=== PATIENT | female | born 1985 | race Hispanic/Latino ===

== ENCOUNTER 2019-05-10 17:06 | Emergency (ER) | payer OTHER ==
[2019-05-10 19:32] LABS: Urine Blood 3+ (NEG); Urine Glucose NEGATIVE (NEG); Urine Protein NEGATIVE (NEG); Urine pH 8.5 (5.0-7.0)
[2019-05-10 19:34] LABS: Absolute Lymphocytes (CBC) 3.2 K/uL (0.7-4.9); Basophils % 0.6 % (0-1.3); Hematocrit 40.3 % (36.0-45.0); Lymphocytes % 43.5 % (15.3-44.8); MPV 8.8 fL (7.6-11.3); RBC Red Blood Cell Count 4.42 M/uL (3.86-4.86)
[2019-05-10 19:37] LABS: Urine Bacteria <20 /HPF (<20); Urine Culture Reflex Order NOT NEEDED; Urine RBC LOADED /HPF (NONE SEEN)
[2019-05-10 19:51] LABS: Potassium 3.7 mmol/L (3.5-5.1)
--- NOTE | 2019-05-10 20:00 | ER ---
Nurse's Notes [facility] Name: Yoana Cook Age: 33 yrs Sex: Female : 1985 Arrival Date: 05/10/2019 Time: 17:08 Bed 24 Private MD: Diagnosis: Threatened Presentation: 05/10 17:09 Presenting complaint: Patient states: lower abdominal pain and lower back pain that aa5 began yesterday. Reports vaginal spotting today and reports positive test 1 week ago. Transition of care: patient was not received from another setting of care. Onset of symptoms was May 10, 2019. Risk Assessment: Do you want to hurt yourself or someone else? Patient reports no desire to harm self or others. Initial Sepsis Screen: Does the patient meet any 2 criteria? No. Patient's initial sepsis screen is negative. Does the patient have a suspected source of infection? No. Patient's initial sepsis screen is negative. Care prior to arrival: None. 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 - Social history:: Smoking status: Patient/guardian denies using tobacco. - Ebola Screening: : No symptoms or risks identified at this time. Screenin:09 Abuse screen: Denies threats or abuse. Denies injuries from another. Nutritional mg2 screening: No deficits noted. Tuberculosis screening: No symptoms or risk factors identified. Fall Risk IV access (20 points). Assessment: 19:09 General: Appears in no apparent distress. comfortable, Behavior is calm, cooperative. mg2 Pain: Complains of pain in back and abdomen. Neuro: Level of Consciousness is awake, alert, obeys commands, Oriented to person, place, time, situation. Cardiovascular: Capillary refill < 3 seconds Patient's skin is warm and dry. Respiratory: Airway is patent Respiratory effort is even, unlabored, Respiratory pattern is regular, symmetrical. GI: Reports lower abdominal pain. : Reports vaginal bleeding that is spotty, since today. EENT: No signs and/or symptoms were reported regarding the EENT system. Derm: Skin is intact, is healthy with good turgor, Skin is pink, warm \T\ dry. normal. Musculoskeletal: Circulation, motion, and sensation intact. Capillary refill < 3 seconds. Vital Signs: 17:11 BP 141 / 88; Pulse 96; Resp 16 S; Temp 98.0(TE); Pulse Ox 98% on R/A; Weight 70.31 kg aa5 (R); Height 5 ft. 4 in. (162.56 cm) (R); Pain 7/10; 20:31 BP 125 / 78; Pulse 80; Resp 18; Temp 98; Pulse Ox 100% on R/A; mg2 17:11 Body Mass Index 26.61 (70.31 kg, 162.56 cm) aa5 ED Course: 17:08 Patient arrived in ED. aa5 17:09 Arm band placed on. aa5 17:10 Triage completed. aa5 19:07 Octavio Villanueva NP is PHCP. pm1 19:07 Raghav Bhandari MD is Attending Physician. pm1 19:07 Adria Fernández RN is Primary Nurse. mg2 19:10 Patient has correct armband on for positive identification. mg2 19:30 Inserted saline lock: 20 gauge in right antecubital area, using aseptic technique. mg2 19:44 US Transvaginal Ob In Process Unspecified. EDMS 20:30 No provider procedures requiring assistance completed. mg2 20:31 IV discontinued, intact, bleeding controlled, No redness/swelling at site. Pressure mg2 dressing applied. Administered Medications: No medications were administered Outcome: 19:59 Discharge ordered by . pm1 20:31 Discharged to home ambulatory. mg2 20:31 Condition: stable 20:31 Discharge instructions given to patient, Instructed on discharge instructions, follow up and referral plans. Demonstrated understanding of instructions, follow-up care. 20:31 Patient left the ED. mg2 Signatures: Dispatcher [employer] EDMS Tonya Knight RN RN aa Octavio Villanueva NP LIFT MANAGER pm1 Adria Fernández RN RN mg2
--- NOTE | 2019-05-10 20:00 | EDPHYS ---
Physician Documentation [facility] Name: Yoana Cook Age: 33 yrs Sex: Female : 1985 Arrival Date: 05/10/2019 Time: 17:08 Bed 24 Private MD: ED Physician Raghav Bhandari HPI: 05/10 19:34 This 33 yrs old Female presents to ER via Ambulatory with complaints of pm1 Vaginal Bleeding, + Preg <12wks, Abdominal Pain. 19:34 The patient presents to the emergency department with vaginal bleeding, with no clots, pm1 spotting yesterday, moderate today. course: care: none, Ultrasound: the patient has not had an ultrasound, Risk/complications: no obvious risks or complications are appreciated. Associated signs and symptoms: Pertinent positives: abdominal pain, Pertinent negatives: dysuria, fever. The patient has not experienced similar symptoms in the past. The patient has not recently seen a physician. Patient estimates that she is about 5 weeks . HHA: 17:11 LMP 04/03/2019 aa5 Historical: - Allergies: 17:10 No Known Allergies; aa5 - PMHx: 17:10 Thyroid problem; aa5 - PSHx: 17:10 ; Appendectomy; aa5 - Immunization history:: Adult Immunizations up to date. - Social history:: Smoking status: Patient/guardian denies using tobacco. - Ebola Screening: : No symptoms or risks identified at this time. ROS: 19:34 Constitutional: Negative for fever, chills, and weight loss, Eyes: Negative for injury, pm1 pain, redness, and discharge, ENT: Negative for injury, pain, and discharge, Neck: Negative for injury, pain, and swelling, Cardiovascular: Negative for chest pain, palpitations, and edema, Respiratory: Negative for shortness of breath, cough, wheezing, and pleuritic chest pain. 19:34 MS/Extremity: Negative for injury and deformity, Skin: Negative for injury, rash, and discoloration, Neuro: Negative for headache, weakness, numbness, tingling, and seizure. 19:34 Abdomen/GI: Positive for abdominal cramps, of the suprapubic area, Negative for nausea, vomiting, and diarrhea. 19:34 Back: Positive for of the left low back and right low back, pain. 19:34 : Positive for vaginal bleeding, Negative for burning with urination, difficulty urinating, vaginal discharge. Exam: 19:34 Constitutional: This is a well developed, well nourished patient who is awake, alert, pm1 and in no acute distress. Head/Face: Normocephalic, atraumatic. Chest/axilla: Normal chest wall appearance and motion. Nontender with no deformity. No lesions are appreciated. Cardiovascular: Regular rate and rhythm with a normal S1 and S2. No gallops, murmurs, or rubs. Normal PMI, no JVD. No pulse deficits. Respiratory: Lungs have equal breath sounds bilaterally, clear to auscultation and percussion. No rales, rhonchi or wheezes noted. No increased work of breathing, no retractions or nasal flaring. Abdomen/GI: Soft, non-tender, with normal bowel sounds. No distension or tympany. No guarding or rebound. No evidence of tenderness throughout. Back: No spinal tenderness. No costovertebral tenderness. Full range of motion. Skin: Warm, dry with normal turgor. Normal color with no rashes, no lesions, and no evidence of cellulitis. MS/ Extremity: Pulses equal, no cyanosis. Neurovascular intact. Full, normal range of motion. 19:34 Neuro: Orientation: is normal, Motor: is normal, moves all fours. Vital Signs: 17:11 BP 141 / 88; Pulse 96; Resp 16 S; Temp 98.0(TE); Pulse Ox 98% on R/A; Weight 70.31 kg aa5 (R); Height 5 ft. 4 in. (162.56 cm) (R); Pain 7/10; 20:31 BP 125 / 78; Pulse 80; Resp 18; Temp 98; Pulse Ox 100% on R/A; mg2 17:11 Body Mass Index 26.61 (70.31 kg, 162.56 cm) aa5 MDM: 19:07 Patient medically screened. pm1 19:56 Data reviewed: vital signs. Data interpreted: Pulse oximetry: on room air is 98 %. pm1 Interpretation: normal. 19:58 Counseling: I had a detailed discussion with the patient and/or guardian regarding: the pm1 historical points, exam findings, and any diagnostic results supporting the discharge/admit diagnosis, lab results, radiology results, the need for outpatient follow up, to return to the emergency department if symptoms worsen or persist or if there are any questions or concerns that arise at home. 05/10 19:07 Order name: Abo/rh Typing; Complete Time: 22:58 pm1 05/10 19:07 Order name: Basic Metabolic Panel; Complete Time: 19:56 pm1 05/10 19:07 Order name: CBC with Diff; Complete Time: 19:39 pm1 05/10 19:17 Order name: Urine Microscopic Only; Complete Time: 19:39 pm05/10 19:25 Order name: Urine Dipstick--Ancillary (enter results); Complete Time: 19:33 eb 05/10 19:07 Order name: Urine Test (obtain specimen); Complete Time: 20:01 pm1 05/10 19:07 Order name: IV Saline Lock; Complete Time: 20:01 pm1 05/10 19:07 Order name: Labs collected and sent; Complete Time: 20:01 pm1 05/10 19:07 Order name: NPO; Complete Time: 19:08 pm1 05/10 19:07 Order name: Urine Dipstick-Ancillary (obtain specimen); Complete Time: 20:01 pm1 05/10 19:17 Order name: US Transvaginal Ob; Complete Time: 22:58 pm1 05/10 19:25 Order name: Urine --Ancillary (enter results); Complete Time: 19:33 eb 05/10 19:26 Order name: HCG, Quantitative; Complete Time: 19:56 EDMS Administered Medications: No medications were administered Disposition: 05/10/19 19:59 Discharged to Home. Impression: Threatened . - Condition is Stable. - Discharge Instructions: Threatened Miscarriage, Pelvic Rest. - Medication Reconciliation Form, Thank You Letter, Antibiotic Education, Prescription Opioid Use form. - Follow up: Emergency Department; When: As needed; Reason: Worsening of condition. Follow up: Private Physician; When: 2 - 3 days; Reason: Recheck today's complaints, Continuance of care, Re-evaluation by your physician. - Problem is new. - Symptoms have improved. Addendum: 05/13/2019 08:16 Co-signature as Attending Physician, Raghav Bhandari MD I agree with the assessment and c sanders plan of care. Signatures: Dispatcher [employer] EDMS Raghav Bhandari MD MD cha Calderon, Audri, RN RN aa5 Octavio Villanueva, COMPLIANCE PROJECT MANAGER COMPLIANCE PROJECT MANAGER pm1 Adria Fernández RN RN mg2 Corrections: (The following items were deleted from the chart) 05/10 19:52 19:24 QUANTITATIVE HCG+C.LAB.BRZ ordered. [facility] 20:31 19:59 05/10/2019 19:59 Discharged to Home. Impression: Threatened . Condition mg2 is Stable. Forms are Medication Reconciliation Form, Thank You Letter, Antibiotic Education, Prescription Opioid Use. Follow up: Emergency Department; When: As needed; Reason: Worsening of condition. Follow up: Private Physician; When: 2 - 3 days; Reason: Recheck today's complaints, Continuance of care, Re-evaluation by your physician. Problem is new. Symptoms have improved. pm1
--- NOTE | 2019-05-10 20:14 | RAD REPORT ---
EXAM DESCRIPTION: US - Transvaginal OB - 05/10/2019 7:43 pm CLINICAL HISTORY: with vaginal bleeding COMPARISON: None. FINDINGS: The uterus is retroverted measuring 7 x 4 x 5 centimeters. The endometrial stripe measure s 3 millimeters. A gestational sac is not seen. Neither ovary seen secondary to overlying bowel gas.. An adnexal mass is not noted. No significant free fluid IMPRESSION: Nonvisualization of a gestational sac within the endometrium. These findings could represent an early intrauterine in which the gestational sac is not se en. and even an ectopic can also result in this appearance. This all should be cor related clinically and with serial beta HCG levels. Followup endovaginal sonogram in 1 week recommend ed
[2019-05-10 20:41] VITALS: BP 125/78; TEMP 98; O2SAT 100
== END 2019-05-10 20:31 | disposition home or self-care (01) ==
LOC: ER 17:06
DX: O20.0 Threatened abortion (principal); Z3A.01 Less than 8 weeks gestation of pregnancy
CPT/HCPCS: 36415; 76817; 80048; 81003; 81015; 81025; 84702; 85025; 86900; 86901; 99283

== ENCOUNTER 2021-01-14 01:06 | Emergency (ER) | payer OTHER ==
[2021-01-14 02:18] LABS: Absolute Lymphocytes (CBC) 2.1 K/uL (0.7-4.9); Basophils % 0.4 % (0-1.3); Hematocrit 37.2 % (36.0-45.0); Lymphocytes % 33.7 % (15.3-44.8); MPV 8.5 fL (7.6-11.3); RBC Red Blood Cell Count 4.16 M/uL (3.86-4.86)
[2021-01-14 02:19] LABS: Protime INR 0.94
[2021-01-14 02:30] LABS: ALT/SGPT 105 U/L (12-78); AST/SGOT 74 U/L (15-37); Albumin 3.8 g/dL (3.4-5.0); Alkaline Phosphatase 82 U/L (45-117); BUN Blood Urea Nitrogen 9 mg/dL (7-18); Bicarbonate 26 mmol/L (21-32); Bilirubin Direct < 0.1 mg/dL (0-0.2); Bilirubin Total 0.3 mg/dL (0.2-1.0); Ferritin 104.3 ng/mL (8-388); Glucose Level 130 mg/dL (74-106); Magnesium 1.9 mg/dL (1.8-2.4); NT PRO-BNP 25 pg/mL (<125); Potassium 3.1 mmol/L (3.5-5.1); Protein, Total 7.8 g/dL (6.4-8.2); Sodium Level 143 mmol/L (136-145); Troponin (Emerg Dept Use Only) < 0.02 ng/mL (0.0-0.045)
[2021-01-14] MEDS ORDERED: ASPIRIN 81 MG CHEWABLE TABLET ONE (02:31)
[2021-01-14] MEDS ORDERED: METHYLPREDNISOLONE 125 MG INJ ONE (02:31)
[2021-01-14] MEDS ORDERED: AZITHROMYCIN 250 MG TAB ONE (02:31)
[2021-01-14] MEDS ORDERED: FAMOTIDINE 20 MG TAB ONE (02:32)
[2021-01-14] MEDS ORDERED: ALBUTEROL INHALER 60 PUFF/8 GM IH ONE (02:32)
[2021-01-14] MEDS ORDERED: predniSONE 20 MG TAB ONE (02:32)
[2021-01-14 02:34] LABS: C-Reactive Protein < 2.90 mg/L (<3.00)
[2021-01-14 02:52] LABS: Urine Specific Gravity/Preg 1.005 (1.005-1.030)
--- NOTE | 2021-01-14 03:22 | EDPHYS ---
Physician Documentation [facility] Name: Yoana Cook Age: 35 yrs Sex: Female : 1985 Arrival Date: 01/14/2021 Time: 01:09 Bed 20 Private MD: ED Physician Raghav Bhandari HPI: 01/14 01:50 This 35 yrs old Female presents to ER via Ambulatory with complaints of Cough matt - +COVID (12 DAYS). 01:50 The patient or guardian reports airway noise, cough, that is intermittent, described as matt mild. Onset: The symptoms/episode began/occurred 11 day(s) ago. Severity of symptoms: At their worst the symptoms were mild, in the emergency department the symptoms are unchanged. Modifying factors: The symptoms are alleviated by nothing, the symptoms are aggravated by exertion, talking. Associated signs and symptoms: The patient has no apparent associated signs or symptoms. The patient has not experienced similar symptoms in the past. 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 - Social history:: Smoking status: Patient denies any tobacco usage or history of. ROS: 01:54 Constitutional: Negative for fever, chills, and weight loss, Eyes: Negative for injury, matt pain, redness, and discharge, ENT: Negative for injury, pain, and discharge, Neck: Negative for injury, pain, and swelling, Cardiovascular: Negative for chest pain, palpitations, and edema, Abdomen/GI: Negative for abdominal pain, nausea, vomiting, diarrhea, and constipation, Back: Negative for injury and pain, : Negative for injury, bleeding, discharge, and swelling, MS/Extremity: Negative for injury and deformity, Skin: Negative for injury, rash, and discoloration, Neuro: Negative for headache, weakness, numbness, tingling, and seizure, Psych: Negative for depression, anxiety, suicide ideation, homicidal ideation, and hallucinations, Allergy/Immunology: Negative for hives, rash, and allergies, Endocrine: Negative for neck swelling, polydipsia, polyuria, polyphagia, and marked weight changes. 01:54 Respiratory: Positive for cough, shortness of breath, at rest. Exam: 01:54 Constitutional: This is a well developed, well nourished patient who is awake, alert, matt and in no acute distress. Head/Face: Normocephalic, atraumatic. Eyes: Pupils equal round and reactive to light, extra-ocular motions intact. Lids and lashes normal. Conjunctiva and sclera are non-icteric and not injected. Cornea within normal limits. Periorbital areas with no swelling, redness, or edema. ENT: Nares patent. No nasal discharge, no septal abnormalities noted. Tympanic membranes are normal and external auditory canals are clear. Oropharynx with no redness, swelling, or masses, exudates, or evidence of obstruction, uvula midline. Mucous membranes moist. Neck: Trachea midline, no thyromegaly or masses palpated, and no cervical lymphadenopathy. Supple, full range of motion without nuchal rigidity, or vertebral point tenderness. No Meningismus. Chest/axilla: Normal chest wall appearance and motion. Nontender with no deformity. No lesions are appreciated. Cardiovascular: Regular rate and rhythm with a normal S1 and S2. No gallops, murmurs, or rubs. Normal PMI, no JVD. No pulse deficits. Abdomen/GI: Soft, non-tender, with normal bowel sounds. No distension or tympany. No guarding or rebound. No evidence of tenderness throughout. Back: No spinal tenderness. No costovertebral tenderness. Full range of motion. Skin: Warm, dry with normal turgor. Normal color with no rashes, no lesions, and no evidence of cellulitis. MS/ Extremity: Pulses equal, no cyanosis. Neurovascular intact. Full, normal range of motion. Neuro: Awake and alert, GCS 15, oriented to person, place, time, and situation. Cranial nerves II-XII grossly intact. Motor strength 5/5 in all extremities. Sensory grossly intact. Cerebellar exam normal. Normal gait. Psych: Awake, alert, with orientation to person, place and time. Behavior, mood, and affect are within normal limits. 01:54 Respiratory: the patient does not display signs of respiratory distress, Respirations: normal, no acute changes, Breath sounds: bronchial sounds, that are mild, are scattered, rhonchi, that are mild, are scattered, stridor, is not appreciated, + upper airway congestion. 02:11 ECG was reviewed by the Attending Physician. [facility] Vital Signs: 01:41 BP 135 / 93; Pulse 84; Resp 24 S; Temp 99.1(O); Pulse Ox 99% on R/A; Weight 76.2 kg bb (R); Height 5 ft. 4 in. (162.56 cm) (R); Pain 0/10; 02:51 BP 125 / 80; Pulse 70; Resp 15; Pulse Ox 98% on R/A; Pain 0/10; bc5 04:08 BP 116 / 75; Pulse 88; Resp 14; Temp 98.9(O); Pulse Ox 98% on R/A; Pain 0/10; bc5 01:41 Body Mass Index 28.84 (76.20 kg, 162.56 cm) MDM: 01:38 Patient medically screened. [facility] 02:11 Differential diagnosis: Anxiety Reaction asthma, Bronchitis pneumonia, pulmonary edema, matt Pulmonary Embolism reactive airway disease, Unstable Angina. Antibiotic administration: The patient is discharged and will get outpatient antibiotics, Zithromax. The patient's Wells Deep Vein Thrombosis Score was calculated as follows: Total Score: 0-2 Pts- Low Risk. Differential Diagnosis: Bronchitis Influenza Upper Respiratory Infection Allergic Rhinitis Asthma Exacerbation Viral Syndrome Pneumonia. The patient's pulmonary embolism risk score was calculated as follows: Total Score: 0-2 points. This patient was found to be at low risk for a pulmonary embolism by using the Well's assessment criteria. Immunization status:. Data reviewed: vital signs, nurses notes, lab test result(s), EKG, radiologic studies, plain films. Data interpreted: sheet sewer: rate is 84 beats/min, rhythm is regular, Pulse oximetry: on room air is 99 %. Test interpretation: by ED physician or midlevel provider: ECG, plain radiologic studies. Counseling: I had a detailed discussion with the patient and/or guardian regarding: the historical points, exam findings, and any diagnostic results supporting the discharge/admit diagnosis, lab results, radiology results, the need for outpatient follow up, for definitive care, a family practitioner, a city weighmaster. 01/14 01:50 Order name: Basic Metabolic Panel; Complete Time: 03:20 [facility] 01/14 01:50 Order name: CBC with Diff; Complete Time: 03:20 [facility] 01/14 01:50 Order name: LFT's; Complete Time: 03:20 [facility] 01/14 01:50 Order name: Magnesium; Complete Time: 03:20 [facility] 01/14 01:50 Order name: NT PRO-BNP; Complete Time: 03:20 [facility] 01/14 01:50 Order name: PT-INR; Complete Time: 03:20 [facility] 01/14 01:50 Order name: Troponin (emerg Dept Use Only); Complete Time: 03:20 [facility] 01/14 01:50 Order name: XRAY Chest (1 view) [facility] 01/14 01:50 Order name: D-Dimer; Complete Time: 03:20 [facility] 01/14 01:50 Order name: CRP; Complete Time: 03:20 [facility] 01/14 01:50 Order name: Ferritin; Complete Time: 03:20 [facility] 01/14 02:12 Order name: Urine --Ancillary (enter results) ds4 01/14 02:13 Order name: Urine --Ancillary; Complete Time: 03:20 EDMS 01/14 01:50 Order name: EKG; Complete Time: 01:51 [facility] 01/14 01:50 Order name: Cardiac monitoring; Complete Time: 02:11 [facility] 01/14 01:50 Order name: EKG - Nurse/Tech; Complete Time: 02:09 [facility] 01/14 01:50 Order name: IV Saline Lock; Complete Time: 02:10 [facility] 01/14 01:50 Order name: Labs collected and sent; Complete Time: 02:10 [facility] 01/14 01:50 Order name: O2 Per Protocol; Complete Time: 02:10 [facility] 01/14 01:50 Order name: O2 Sat Monitoring; Complete Time: 02:10 [facility] EC:11 Rate is 73 beats/min. Rhythm is regular. QRS [place] is Normal. [place] interval is normal. QRS matt interval is normal. QT interval is normal. No Q waves. T waves are Normal. No ST changes noted. Clinical impression: Normal ECG and No evidence of ischemia. Interpreted by me. Reviewed by me. Administered Medications: 02:26 Drug: Zithromax (azithromycin) 500 mg Route: PO; bc5 02:26 Drug: Aspirin Chewable Tablet 324 mg Route: PO; bc5 02:26 Drug: Albuterol HFA Inhaler 4 puffs Route: Inhalation; bc5 02:26 Drug: Pepcid (famotidine) 40 mg Route: PO; bc5 02:26 Drug: SOLU-Medrol (methylPrednisoLONE) 125 mg Route: IVP; Site: right antecubital; bc5 02:26 Drug: predniSONE 40 mg Route: PO; bc5 04:09 Drug: Potassium Effervescent Tablet 50 mEq Route: PO; bc5 Disposition Summary: 01/14/21 03:22 Discharge Ordered Location: Home [facility] Problem: new [facility] Symptoms: have improved matt Condition: Stable matt Diagnosis - Coronavirus infection, unspecified matt - Pneumonia due to SARS-associated coronavirus matt - Acute upper respiratory infection, unspecified matt - Hypokalemia matt Followup: matt - With: Private Physician - When: 2 - 3 days - Reason: Recheck today's complaints, Continuance of care, Re-evaluation by your physician Followup: matt - With: - When: 2 - 3 days - Reason: Recheck today's complaints, Continuance of care, Re-evaluation by your physician Discharge Instructions: - Discharge Summary Sheet matt - Upper Respiratory Infection, Adult matt - Cool Mist Vaporizer [facility] - Viral Respiratory Infection, [id number] [facility] - Aspirin and Your Heart [facility] - Cough, Adult [facility] - COVID-19 [facility] - COVID-19 Frequently Asked Questions [facility] - 10 Things You Can Do to Manage Your COVID-19 Symptoms at Home - [facility] - COVID-19: Quarantine vs. Isolation - [facility] Forms: - Medication Reconciliation Form [facility] - Thank You Letter [facility] - Antibiotic Education [facility] - Prescription Opioid Use [facility] Prescriptions: - albuterol sulfate 90 mcg/actuation Inhalation HFA aerosol inhaler - inhale 2 puff by INHALATION route every 4-6 hours; 1 Pump; Refills: 0, Product matt Selection Permitted - Singulair 10 mg Oral Tablet - take 1 tablet by ORAL route At bedtime; 30 tablet; Refills: 0, Product [facility] Selection Permitted - Pepcid 20 mg Oral Tablet - take 1 tablet by ORAL route every 12 hours for 15 days; 30 tablet; Refills: 0, [facility] Product Selection Permitted - Prednisone 20 mg Oral Tablet - take 2 tablet by ORAL route once daily for 5 days; 10 tablet; Refills: 0, [facility] Product Selection Permitted - Zithromax Z-Rey 250 mg Oral Tablet - take 1 tablet by ORAL route as directed for 5 days Day 1 - take two (2) tablets matt one time. Day 2, 3, 4 , 5 take one (1) tablet once daily.; 6 tablet; Refills: 0, Product Selection Permitted Signatures: Dispatcher [employer] Raghav Mesa MD MD cha Ballard, Brenda, RN RN bb Ruthann Khanna RN RN bc5 Corrections: (The following items were deleted from the chart) 01:44 01:43 PMHx: Thyroid problem; ainsley schmitz
--- NOTE | 2021-01-14 03:22 | ER ---
Nurse's Notes [facility] Name: Yoana Cook Age: 35 yrs Sex: Female : 1985 Arrival Date: 01/14/2021 Time: 01:09 Bed 20 Private MD: Diagnosis: Coronavirus infection, unspecified;Pneumonia due to SARS-associated coronavirus;Acute upper respiratory infection, unspecified;Hypokalemia Presentation: 01/14 01:41 Chief complaint: Patient states: she was Covid positive about 12 days ago and tonight bb she started coughing and couldn't quit for about 2 hours to the point of vomiting her coughing subsided about 20 minutes ago. Coronavirus screen: Client presents with at least one sign or symptom that may indicate coronavirus-19. Standard/surgical mask placed on the client. Client reports previous positive COVID test result. Ebola Screen: No symptoms or risks identified at this time. Initial Sepsis Screen: Does the patient meet any 2 criteria? No. Patient's initial sepsis screen is negative. Does the patient have a suspected source of infection? No. Patient's initial sepsis screen is negative. Risk Assessment: Do you want to hurt yourself or someone else? Patient reports no desire to harm self or others. Onset of symptoms was January 14, 2021. 01:41 Method Of Arrival: Ambulatory 01:41 Acuity: CARMEN 3 bb Triage Assessment: 01:49 General: Appears in no apparent distress. Behavior is calm, cooperative, appropriate bc5 for age. Pain: Denies pain. 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 - Social history:: Smoking status: Patient denies any tobacco usage or history of. Screenin:48 Abuse screen: Denies threats or abuse. Denies injuries from another. Nutritional bc5 screening: No deficits noted. Tuberculosis screening: No symptoms or risk factors identified. Fall Risk None identified. Assessment: 02:46 General: Appears in no apparent distress. Behavior is calm, cooperative, appropriate bc5 for age. Neuro: No deficits noted. Cardiovascular: No deficits noted. Respiratory: Reports cough that is non-productive. Vital Signs: 01:41 BP 135 / 93; Pulse 84; Resp 24 S; Temp 99.1(O); Pulse Ox 99% on R/A; Weight 76.2 kg bb (R); Height 5 ft. 4 in. (162.56 cm) (R); Pain 0/10; 02:51 BP 125 / 80; Pulse 70; Resp 15; Pulse Ox 98% on R/A; Pain 0/10; bc5 04:08 BP 116 / 75; Pulse 88; Resp 14; Temp 98.9(O); Pulse Ox 98% on R/A; Pain 0/10; bc5 01:41 Body Mass Index 28.84 (76.20 kg, 162.56 cm) bb ED Course: 01:09 Patient arrived in ED. wm 01:13 Raghav Bhandari MD is Attending Physician. matt 01:36 Ruthann Khanna RN is Primary Nurse. bc5 01:43 Triage completed. bb 01:43 Arm band placed on Patient placed in an exam room, on a stretcher, on pulse oximetry. bb 01:49 Patient has correct armband on for positive identification. Bed in low position. Call bc5 light in reach. 01:50 No provider procedures requiring assistance completed. bc5 02:05 Inserted saline lock: 22 gauge in right antecubital area, using aseptic technique. ds4 Blood collected. 02:15 XRAY Chest (1 view) In Process Unspecified. EDMS 02:46 Urine --Ancillary (enter results) Sent. bc5 03:21 Ha Melton MD is Referral Physician. matt 03:56 IV discontinued, intact, bleeding controlled, No redness/swelling at site. Pressure bc5 dressing applied. Administered Medications: 02:26 Drug: Zithromax (azithromycin) 500 mg Route: PO; bc5 02:26 Drug: Aspirin Chewable Tablet 324 mg Route: PO; bc5 02:26 Drug: Albuterol HFA Inhaler 4 puffs Route: Inhalation; bc5 02:26 Drug: Pepcid (famotidine) 40 mg Route: PO; bc5 02:26 Drug: SOLU-Medrol (methylPrednisoLONE) 125 mg Route: IVP; Site: right antecubital; 5 02:26 Drug: predniSONE 40 mg Route: PO; bc5 04:09 Drug: Potassium Effervescent Tablet 50 mEq Route: PO; bc5 Outcome: 03:22 Discharge ordered by MD. gutierrez 03:55 Discharged to home ambulatory. 5 03:55 Condition: improved 03:55 Discharge instructions given to patient, Instructed on discharge instructions. 04:09 Patient left the ED. 5 Signatures: Dispatcher [employer] EDFL Raghav Bhandari MD MD cha Ballard, Brenda, RN RN bb Js Vincent ds4 Fiorella Granado Bella RN RN bc5 Corrections: (The following items were deleted from the chart) 01:44 01:43 PMHx: Thyroid problem; ainsley schmitz
[2021-01-14] MEDS ORDERED: POTASSIUM 25 MEQ EFFERV TAB ONE (04:26)
[2021-01-14 04:29] VITALS: O2SAT 98
[2021-01-14 04:31] VITALS: BP 116/75; TEMP 98.9
--- NOTE | 2021-01-14 08:55 | RAD REPORT ---
EXAM DESCRIPTION: RAD - Chest Single View - 01/14/2021 2:15 am CLINICAL HISTORY: Cough;Dyspnea COMPARISON: None TECHNIQUE: AP portable chest image was obtained 01/14/2021 2:15 am . FINDINGS: Lungs are clear. Heart and vasculature are normal. No measurable pleural effusion and no p neumothorax. No acute bony abnormality seen. No acute aortic findings suspected. IMPRESSION: No acute cardiopulmonary process.
[2021-01-20 16:05] LABS: Urine Blood Negative (Negative); Urine Glucose Negative (Negative); Urine Protein Negative (Negative); Urine Specific Gravity <=1.005 (1.005-1.030)
== END 2021-01-14 04:09 | disposition home or self-care (01) ==
LOC: ER 01:06
DX: U07.1 COVID-19 (principal); J12.82 Pneumonia due to coronavirus disease 2019; E87.6 Hypokalemia; E03.9 Hypothyroidism, unspecified
CPT/HCPCS: 93005; 85025; 80048; 36415; 83735; 81025; 85610; 85379; 80076; 81003; 84484; 82728; 83880; 86140; 71045; 96374; 99284; J7512; J2930